=== PATIENT | male | born 1990 | race Hispanic/Latino ===

== ENCOUNTER 2018-03-09 01:22 | Emergency (ER) | payer OTHER ==
--- NOTE | 2018-03-09 01:31 | ED PDOC ---
HPI: General Adult Time Seen by Provider: 03/09/18 01:26 Chief Complaint (Provider): Alcohol abuse - Denies complaint History Per: Patient History/Exam Limitations: no limitations Onset/Duration Of Symptoms: Hrs Have you had recent travel within the past 21 days to any of the following countries: [place], [place], [place] or [place]?: No Additional Complaint(s): 28 yo male with no medical problems states he was out with friends drinking beers today. Pts he lives 3 blocks away. Pt denies complaints. Past Medical History Reviewed: Historical Data, Nursing Documentation, Vital Signs - Medical History PMH: No Chronic Diseases - Surgical History Surgical History: No Surg Hx - Family History Family History: States: No Known Family Hx - Living Arrangements Living Arrangements: With Family Review of Systems ROS Statement: Except As Marked, All Systems Reviewed And Found Negative Constitutional: Negative for: Fever, Chills Gastrointestinal: Negative for: Nausea, Vomiting, Abdominal Pain Skin: Negative for: Rash, Bruising Physical Exam - Reviewed Nursing Documentation Reviewed: Yes Vital Signs Reviewed: Yes - Physical Exam Appears: Positive for: Well, Non-toxic, No Acute Distress Head Exam: Positive for: ATRAUMATIC, NORMAL INSPECTION, NORMOCEPHALIC Skin: Positive for: Normal Color, Warm, DRY Eye Exam: Positive for: Normal appearance ENT: Positive for: Normal ENT Inspection Neck: Positive for: Normal, Painless ROM Cardiovascular/Chest: Positive for: Regular Rate, Rhythm Respiratory: Positive for: Normal Breath Sounds. Negative for: Accessory Muscle Use, Respiratory Distress Back: Positive for: Normal Inspection Extremity: Positive for: Normal ROM Neurologic/Psych: Positive for: Alert, Oriented - ECG Pulse Ox Interpretation: Normal Disposition - Clinical Impression Clinical Impression: Alcohol abuse - Disposition Disposition: Routine/Home Disposition Time: 01:31 Condition: STABLE Instructions: Effects of Alcohol on Your Health
[2018-03-09 01:35] VITALS: RESP 18; BMI 21.7
[2018-03-09 01:43] VITALS: BP 139/89; PULSE 75; TEMP 97.6; O2SAT 99
== END 2018-03-09 01:42 | disposition home or self-care (01) ==
LOC: H.ER 01:22
DX: F10.10 Alcohol abuse, uncomplicated (principal)